=== PATIENT | female | born 1985 | race Caucasian/White ===

== ENCOUNTER → 2017-10-11 | Outpatient (CLI) | payer OTHER ==
[~2017-10-11] MED LIST: AMIT25; AMIT50; AMOX500 PO; Amoxicillin500 MG PO; BIRTH CONTROL PILL PO; BIRTH CONTROLE; Bentyl10 MG; CALCAVITD PO; CEPH500 PO; CIPR500 PO; CITA20 PO; CYCL10 PO; Citalopram HBr20 MG PO; Cyclobenzaprine5 MG PO; DIPH50 PO; DOXY100 PO; GABA100 PO; HYDACE5 PO; HYDACE5325 PO; HYDR1TAB94 PO; IBUHYD PO; IBUP400; IBUP600 PO; IBUP800 PO; LEVFLO500 PO; MEDR150I IM; META800 PO; METO10; MULVITMINE PO; NAPR500 PO; Norco 5-325 Ta1 EACH PO; ONDA4 PO; OXYACE5T PO; OXYC10TA19; PHENA200 PO; PROBIOTIC1 EAC1 PO; PROM25; PROM25 PO; Percocet 5-3251 EACH PO; RXCLIN PO; RXHYD5325 PO; RXHYDACE PO; RXONDA4ODT MM; RXOXYACE PO; SULTRIDS PO; Super B With V1 EACH PO; TRAM50 PO; TRAZ100 PO; VICODIN 5-3001 EACH; Verotin-Gr Cap1 EACH PO; Zofran Odt4 MG SL; Zofran8 MG PO
== END | disposition home or self-care (01) ==
LOC: LAB SHORT 15:09
DX: R10.9 Unspecified abdominal pain (principal)
CPT/HCPCS: 87077; 87086; 87186

== ENCOUNTER → 2018-02-24 | Outpatient (CLI) | payer OTHER ==
[~2018-02-24] MED LIST changes: -GABA100 PO
[2018-02-24 14:17] LABS: Candida species (DNA Probe) Negative (NEGATIVE); G. vaginalis (DNA Probe) Negative (NEGATIVE); T. vaginalis (DNA Probe) Negative (NEGATIVE)
== END ==
LOC: LAB SHORT 09:40
PROVIDERS: Obstetrics & Gynecology
DX: Z01.419 Encounter for gynecological examination (general) (routine) without abnormal findings (principal)
CPT/HCPCS: 87480; 87510; 87660

== ENCOUNTER → 2018-02-24 | Outpatient (CLI) | payer OTHER ==
[2018-02-24 10:14] LABS: Source, Urine Clean Catch
[2018-02-24 13:17] LABS: Bilirubin, Urine Neg (Neg); Blood, Urine 2+ (Neg); Glucose Qualitative, Urine Neg (Neg); Ketones, Urine Neg (Neg); Leukocyte Esterase, Urine Neg (Neg); Nitrite, Urine Neg (Neg); Protein, Urine Neg (Neg); Urobilinogen, Urine NORM (Normal)
[2018-02-24 13:28] LABS: Color, Urine Pale Yellow (P-Yellow)
[2018-02-24 13:29] LABS: Appearance, Urine Clear (Clear)
[2018-02-24 13:30] LABS: Bacteria Not Seen /hpf; Red Blood Cells, Urine Not Seen /hpf (0-2); Squamous Epithelial Cells Not Seen /hpf (Few); White Blood Cells, Urine Not Seen /hpf (0-5)
== END ==
LOC: LAB SHORT 10:12 → LAB 10:12
PROVIDERS: Obstetrics & Gynecology
DX: R30.0 Dysuria (principal)
CPT/HCPCS: 81001

== ENCOUNTER → 2018-12-09 | Outpatient (CLI) | payer OTHER ==
[~2018-12-09] MED LIST changes: +GABA100 PO
[2018-12-09 16:48] LABS: Source, Urine Clean Catch
[2018-12-09 18:15] LABS: Bilirubin, Urine Neg (Neg); Blood, Urine 2+ (Neg); Glucose Qualitative, Urine Neg (Neg); Ketones, Urine 3+ (Neg); Leukocyte Esterase, Urine 2+ (Neg); Nitrite, Urine Neg (Neg); Protein, Urine 1+ (Neg); Specific Gravity, Urine 1.025 (1.003-1.022); Urobilinogen, Urine NORM (Normal)
[2018-12-09 18:33] LABS: Appearance, Urine Hazy (Clear); Color, Urine Yellow (P-Yellow)
[2018-12-09 18:34] LABS: Bacteria Many /hpf; Mucus Light (0-Heavy); Red Blood Cells, Urine 0-2 /hpf (0-2); Squamous Epithelial Cells Few /hpf (Few)
== END | disposition home or self-care (01) ==
LOC: LAB SHORT 15:39 → LAB 15:39
PROVIDERS: Obstetrics & Gynecology
DX: O99.89 Other specified diseases and conditions complicating pregnancy, childbirth and the puerperium (principal); R31.9 Hematuria, unspecified
CPT/HCPCS: 81001; 87086

== ENCOUNTER → 2019-04-27 | Outpatient (CLI) | payer OTHER ==
[~2019-04-27] MED LIST changes: +PRENATAL TABLE1 EAC2 PO
[2019-04-28 11:44] LABS: Candida species (DNA Probe) Positive (NEGATIVE); G. vaginalis (DNA Probe) Negative (NEGATIVE); T. vaginalis (DNA Probe) Negative (NEGATIVE)
== END | disposition home or self-care (01) ==
LOC: LAB SHORT 16:09 → LAB 16:09
PROVIDERS: Obstetrics & Gynecology
DX: N76.0 Acute vaginitis (principal)
CPT/HCPCS: 87480; 87510; 87660

== ENCOUNTER → 2019-05-25 | Outpatient (CLI) | payer OTHER | END | disposition home or self-care (01) | LOC: LAB SHORT 14:57 → LAB 14:57 | DX: Z34.80 Encounter for supervision of other normal pregnancy, unspecified trimester (principal) | CPT/HCPCS: 87081; 87653 ==

== ENCOUNTER 2019-06-23 16:37 | Inpatient (IN) | payer OTHER ==
[~2019-06-23] VITALS: Ht 162.6 cm; Wt 81.8 kg
[~2019-06-23 16:37] MED LIST changes: -PRENATAL TABLE1 EAC2 PO
[2019-06-23] MEDS ORDERED: PRENATAL TABLE1 EAC2 PO (18:31)
[2019-06-23 19:02] LABS: BASOPHILS ABSOLUTE AUTO 0.05 K/mm3 (0.00-0.23); BASOPHILS PERCENT AUTO 0 % (0-2); EOSINOPHILS ABSOLUTE AUTO 0.05 K/mm3 (0.00-0.68); EOSINOPHILS PERCENT AUTO 0 % (0-6); Hematocrit 39.7 % (33.0-51.0); Hemoglobin 13.4 g/dL (11.5-16.0); IMMATURE GRAN ABSOLUTE AUTO 0.15 K/mm3 (0.00-0.10); IMMATURE GRAN PERCENT AUTO 1 % (0-1); LYMPHOCYTES ABSOLUTE AUTO 1.81 K/mm3 (0.84-5.20); LYMPHOCYTES PERCENT AUTO 11 % (21-46); MONOCYTES ABSOLUTE AUTO 0.64 K/mm3 (0.16-1.47); MONOCYTES PERCENT AUTO 4 % (4-13); Mean Corpuscular HGB 29.8 pg (26.0-34.0); Mean Corpuscular HGB Conc 33.8 g/dL (31.5-36.5); Mean Corpuscular Volume 88 fL (80-100); NEUTROPHILS ABSOLUTE AUTO 13.83 K/mm3 (1.96-9.15); NEUTROPHILS PERCENT AUTO 84 % (41-73); Platelet Count 282 K/mm3 (150-400); RDW Coefficient Variation 12.7 % (11.7-14.2); RDW Standard Deviation 41.1 fL (35.1-46.3); Red Blood Cell Count 4.49 M/mm3 (3.80-5.20); White Blood Cell Count 16.53 K/mm3 (4.00-11.30)
[2019-06-24 05:07] LABS: Hematocrit 35.3 % (33.0-51.0); Hemoglobin 11.9 g/dL (11.5-16.0); Mean Corpuscular HGB 29.6 pg (26.0-34.0); Mean Corpuscular HGB Conc 33.7 g/dL (31.5-36.5); Mean Corpuscular Volume 88 fL (80-100); Mean Platelet Volume 9.1 fL (9.1-12.4); Platelet Count 254 K/mm3 (150-400); RDW Coefficient Variation 12.6 % (11.7-14.2); Red Blood Cell Count 4.02 M/mm3 (3.80-5.20); White Blood Cell Count 19.75 K/mm3 (4.00-11.30)
[2019-06-24] MEDS ORDERED: IBUP800 PO (22:51)
== END 2019-06-24 23:00 | disposition home or self-care (01) | DRG 807 ==
LOC: OBS 16:37 → BC 16:37 → OBS 18:27 → BC 18:29
PROVIDERS: ADMIT Obstetrics & Gynecology
PROC: 10E0XZZ Delivery of Products of Conception, External Approach (ICD-10-PCS; principal; 2019-06-23)
PROC: 10907ZC Drainage of Amniotic Fluid, Therapeutic from Products of Conception, Via Natural or Artificial Opening (ICD-10-PCS; 2019-06-23)
DX: O32.6XX0 Maternal care for compound presentation, not applicable or unspecified (principal); Z37.0 Single live birth; Z3A.39 39 weeks gestation of pregnancy
CPT/HCPCS: 36415; 85025; 85027; J1885; J2210; J2590; J3010; J7120

== ENCOUNTER → 2020-02-02 | Outpatient (CLI) | payer OTHER ==
[~2020-02-02] MED LIST changes: +PRENATAL TABLE1 EAC2 PO
[2020-02-03 11:10] LABS: Candida species (DNA Probe) Negative (NEGATIVE); G. vaginalis (DNA Probe) Negative (NEGATIVE); T. vaginalis (DNA Probe) Negative (NEGATIVE)
== END | disposition home or self-care (01) ==
LOC: LAB 16:00 → LAB SHORT 16:00
PROVIDERS: Obstetrics & Gynecology
DX: N76.0 Acute vaginitis (principal)
CPT/HCPCS: 87480; 87510; 87660

== ENCOUNTER 2020-03-02 20:27 | Emergency (ER) | payer OTHER ==
[~2020-03-02] VITALS: Ht 162.6 cm; Wt 70.3 kg
[2020-03-02 21:51] LABS: Source, Urine Clean Catch
[2020-03-02 21:55] LABS: Bilirubin, Urine Neg (Neg); Blood, Urine 4+ (Neg); Glucose Qualitative, Urine Neg (Neg); Ketones, Urine Neg (Neg); Leukocyte Esterase, Urine 1+ (Neg); Nitrite, Urine Neg (Neg); Protein, Urine 1+ (Neg); Urobilinogen, Urine NORM (Normal)
[2020-03-02 21:56] LABS: Appearance, Urine Clear (Clear); Color, Urine Yellow (P-Yellow)
[2020-03-02 22:02] LABS: Amorphous Light (0-Heavy); Bacteria Mod /hpf; Hyaline Casts 0-2 /lpf (0-2); Mucus Heavy (0-Heavy); Squamous Epithelial Cells Mod /hpf (Few)
[2020-03-02] MEDS ORDERED: CEPH500 PO (22:31)
[2020-03-02] MEDS ORDERED: Pyridium200 MG PO (22:31)
== END 2020-03-02 22:50 | disposition home or self-care (01) ==
LOC: ER 20:27
PROVIDERS: Physician Assistant
DX: N12 Tubulo-interstitial nephritis, not specified as acute or chronic (principal); Z88.2 Allergy status to sulfonamides; Z79.899 Other long term (current) drug therapy; Z87.891 Personal history of nicotine dependence
CPT/HCPCS: 81001; 87086; 99284; A9270; A9270-GY

== ENCOUNTER 2021-01-05 11:21 | Day surgery (SDC) | payer OTHER ==
[~2021-01-05] VITALS: Ht 162.6 cm; Wt 65.3 kg
[~2021-01-05 11:21] MED LIST changes: +BENADRYL25 MG PO; +MAGNESIUM OXID500 MG PO; +OMEP20ER PO; +Pyridium200 MG PO
[2021-01-05] MEDS ORDERED: AMIT25 PO (11:38)
[2021-01-05] MEDS ORDERED: ZOLP6.25 PO (11:39)
--- NOTE | 2021-01-05 11:42 | NUR ---
01/05/21 Sina2 Yuliana Waters CALL LIGHT WITHIN REACH
== END 2021-01-05 13:10 | disposition home or self-care (01) ==
LOC: ORSCSDS 11:21
PROVIDERS: Internal Medicine Gastroenterology
PROC: 0DB98ZX Excision of Duodenum, Via Natural or Artificial Opening Endoscopic, Diagnostic (ICD-10-PCS; principal; 2021-01-05 12:30)
PROC: 0DB78ZX Excision of Stomach, Pylorus, Via Natural or Artificial Opening Endoscopic, Diagnostic (ICD-10-PCS; principal; 2021-01-05 12:30)
PROC: 0DBE8ZX Excision of Large Intestine, Via Natural or Artificial Opening Endoscopic, Diagnostic (ICD-10-PCS; principal; 2021-01-05 12:30)
DX: K31.84 Gastroparesis (principal); R19.7 Diarrhea, unspecified; K64.8 Other hemorrhoids; R10.30 Lower abdominal pain, unspecified; R14.1 Gas pain; R63.0 Anorexia; Z87.891 Personal history of nicotine dependence; Z79.899 Other long term (current) drug therapy
CPT/HCPCS: 88305; J2250; J2704; J7120

== ENCOUNTER → 2021-01-13 | Outpatient (CLI) | payer OTHER ==
[~2021-01-13] MED LIST changes: +AMIT25 PO; +ZOLP6.25 PO
== END ==
LOC: LAB EV 16:37 → LAB SHORT 16:37
DX: J02.9 Acute pharyngitis, unspecified (principal)
CPT/HCPCS: 87081

== ENCOUNTER → 2021-07-26 | Outpatient (CLI) | payer OTHER ==
[2021-07-28 14:10] LABS: HPV 16 Negative (Negative); HPV 18 Negative (Negative); HPV OTHER HR TYPES Negative (Negative)
== END ==
LOC: LAB SHORT 16:12 → LAB 16:12
PROVIDERS: Obstetrics & Gynecology
DX: Z01.419 Encounter for gynecological examination (general) (routine) without abnormal findings (principal)
CPT/HCPCS: 87624; G0123

== ENCOUNTER → 2022-02-10 | Outpatient (CLI) | payer OTHER ==
[2022-02-10 15:19] LABS: BASOPHILS ABSOLUTE AUTO 0.08 K/mm3 (0.00-0.23); BASOPHILS PERCENT AUTO 1 % (0-2); EOSINOPHILS ABSOLUTE AUTO 0.06 K/mm3 (0.00-0.68); EOSINOPHILS PERCENT AUTO 0 % (0-6); Hematocrit 42.4 % (33.0-51.0); Hemoglobin 14.8 g/dL (11.5-16.0); IMMATURE GRAN ABSOLUTE AUTO 0.04 K/mm3 (0.00-0.10); IMMATURE GRAN PERCENT AUTO 0 % (0-1); LYMPHOCYTES ABSOLUTE AUTO 1.77 K/mm3 (0.84-5.20); LYMPHOCYTES PERCENT AUTO 11 % (21-46); MONOCYTES ABSOLUTE AUTO 0.73 K/mm3 (0.16-1.47); MONOCYTES PERCENT AUTO 5 % (4-13); Mean Corpuscular HGB 29.3 pg (26.0-34.0); Mean Corpuscular HGB Conc 34.9 g/dL (31.5-36.5); Mean Corpuscular Volume 84 fL (80-100); Mean Platelet Volume 8.9 fL (9.1-12.4); NEUTROPHILS ABSOLUTE AUTO 13.28 K/mm3 (1.96-9.15); NEUTROPHILS PERCENT AUTO 83 % (41-73); Platelet Count 413 K/mm3 (150-400); RDW Coefficient Variation 12.3 % (11.7-14.2); RDW Standard Deviation 37.4 fL (35.1-46.3); Red Blood Cell Count 5.05 M/mm3 (3.80-5.20); White Blood Cell Count 15.96 K/mm3 (4.00-11.30)
== END ==
LOC: LAB SHORT 15:13 → LAB 15:13
PROVIDERS: Physician Assistant
DX: J03.90 Acute tonsillitis, unspecified (principal)
CPT/HCPCS: 85025

== ENCOUNTER → 2025-01-27 | Outpatient (CLI) | payer OTHER | LOC: LAB SHORT 11:29 → LAB 11:29 | DX: O09.93 Supervision of high risk pregnancy, unspecified, third trimester (principal) | CPT/HCPCS: 87081; 87150 ==

== ENCOUNTER 2025-02-07 05:14 | Inpatient (IN) | payer OTHER ==
[~2025-02-07] VITALS: Ht 162.6 cm; Wt 81.1 kg
[2025-02-07] VITALS (9 sets, daily range): BP systolic 92–143; BP diastolic 56–80
[2025-02-07] MEDS ORDERED: Carboprost Tromethamine 250 MCG/ML 1ML Amp IM PRN (05:25)
[2025-02-07] MEDS ORDERED: Misoprostol 200 MCG Tab PR PRN (05:25)
[2025-02-07] MEDS ORDERED: Tranexamic Acid 100 ML IV PRN (05:25)
[2025-02-07] MEDS ORDERED: Methylergonovine Maleate 0.2MG / ML 1ML Amp IM PRN (05:25)
[2025-02-07] MEDS ORDERED: Lactated Ringer's 1,000 ML IV PRN (05:25)
[2025-02-07] MEDS ORDERED: Misoprostol 200 MCG Tab BC PRN (05:25)
[2025-02-07] MEDS ORDERED: OXYTOCIN/RINGER'S LACTATE 500 ML IV PRN (05:25)
[2025-02-07] MEDS ORDERED: Oxytocin 10 Unit / ML Vial IM PRN (05:25)
[2025-02-07] MEDS ORDERED: Ondansetron HCl 2 MG / ML 2ML Vial IV PRN (05:25)
[2025-02-07] MEDS ORDERED: Acetaminophen 500 MG Tab PO PRN (05:25)
[2025-02-07] MEDS ORDERED: Calcium Carbonate 500 MG Tab Chew PO PRN (05:30)
[2025-02-07] MEDS ORDERED: Benzocaine Topical Anesthetic Spray 60GM TOP PRN (05:40)
[2025-02-07] MEDS ORDERED: Polyethylene Glycol 3350 17 gm PO PRN (05:40)
[2025-02-07] MEDS ORDERED: Rho(D) Immune Globulin 300 MCG / SYR IM ONE (05:40)
[2025-02-07] MEDS ORDERED: Acetaminophen 325 MG TABLET PO PRN (05:45)
[2025-02-07] MEDS ORDERED: Ibuprofen 400 MG Tab PO PRN (05:45)
[2025-02-07] MEDS ORDERED: Lanolin Cream TOP PRN (05:45)
[2025-02-07] MEDS ORDERED: Measles/Mumps/Rubella Vaccine 0.5 ML Vial SC ONE (05:45)
[2025-02-07] MEDS ORDERED: Ketorolac Tromethamine 30mg Vial IV PRN (05:45)
[2025-02-07] MEDS ORDERED: Witch Hazel/Glycerin PADS TOP PRN (05:45)
[2025-02-07 05:55] LABS: BASOPHILS ABSOLUTE AUTO 0.04 K/mm3 (0.00-0.23); BASOPHILS PERCENT AUTO 0 % (0-2); EOSINOPHILS ABSOLUTE AUTO 0.15 K/mm3 (0.00-0.68); EOSINOPHILS PERCENT AUTO 1 % (0-6); Hematocrit 36.7 % (33.0-51.0); Hemoglobin 13.1 g/dL (11.5-16.0); IMMATURE GRAN PERCENT AUTO 1 % (0-1); LYMPHOCYTES ABSOLUTE AUTO 2.04 K/mm3 (0.84-5.20); LYMPHOCYTES PERCENT AUTO 14 % (21-46); MONOCYTES ABSOLUTE AUTO 0.68 K/mm3 (0.16-1.47); MONOCYTES PERCENT AUTO 5 % (4-13); Mean Corpuscular HGB 30.2 pg (26.0-34.0); Mean Corpuscular HGB Conc 35.7 g/dL (31.5-36.5); Mean Corpuscular Volume 85 fL (80-100); NEUTROPHILS ABSOLUTE AUTO 11.17 K/mm3 (1.96-9.15); NEUTROPHILS PERCENT AUTO 79 % (41-73); Platelet Count 264 K/mm3 (150-400); RDW Coefficient Variation 12.9 % (11.7-14.2); RDW Standard Deviation 39.7 fL (35.1-46.3); Red Blood Cell Count 4.34 M/mm3 (3.80-5.20); White Blood Cell Count 14.18 K/mm3 (4.00-11.30)
--- NOTE | 2025-02-07 07:21 | NUR ---
PT ARRIVED TO [facility] AROUND 0455, STATES "NEEDS TO POOP" AND CANNOT WALK OR USE WHEELCHAIR, PT STATES HER "BABY IS COMING NOW". THIS RN CALLED DR. GARCIA TO UPDATE, DR. GARCIA REFERRED TO DR. BAKER WHO IS CLINICAL RESEARCH NURSE. DR. BAKER CALLED AT 0458, NO ANSWER, AROUND 0500 DR. BAKER RETURNED CALL AND THIS RN UPDATED THAT PT WALKED IN AND IS READY TO DELIVER NB. PROVIDER TO BE ON WAY, ARRIVED IN HOUSE AROUND [id number].
[2025-02-07] MEDS ORDERED: Prenatal Vit/FE Fumarate/FA 1 Tab PO SCH (09:00)
[2025-02-07] MEDS ORDERED: Oxytocin 10 Unit / ML Vial IV ONE (15:04)
[2025-02-08 01:35] VITALS: BP 97/52
[2025-02-08 06:13] VITALS: BP 103/66
[2025-02-08 07:52] LABS: BASOPHILS ABSOLUTE AUTO 0.06 K/mm3 (0.00-0.23); BASOPHILS PERCENT AUTO 0 % (0-2); EOSINOPHILS ABSOLUTE AUTO 0.28 K/mm3 (0.00-0.68); EOSINOPHILS PERCENT AUTO 2 % (0-6); IMMATURE GRAN ABSOLUTE AUTO 0.07 K/mm3 (0.00-0.10); IMMATURE GRAN PERCENT AUTO 1 % (0-1); LYMPHOCYTES ABSOLUTE AUTO 1.81 K/mm3 (0.84-5.20); LYMPHOCYTES PERCENT AUTO 13 % (21-46); MONOCYTES ABSOLUTE AUTO 0.69 K/mm3 (0.16-1.47); MONOCYTES PERCENT AUTO 5 % (4-13); Mean Corpuscular HGB Conc 34.4 g/dL (31.5-36.5); Mean Corpuscular Volume 87 fL (80-100); Mean Platelet Volume 9.1 fL (9.1-12.4); NEUTROPHILS ABSOLUTE AUTO 10.98 K/mm3 (1.96-9.15); NEUTROPHILS PERCENT AUTO 79 % (41-73); Platelet Count 248 K/mm3 (150-400); RDW Coefficient Variation 13.1 % (11.7-14.2); RDW Standard Deviation 41.5 fL (35.1-46.3); Red Blood Cell Count 3.67 M/mm3 (3.80-5.20); White Blood Cell Count 13.89 K/mm3 (4.00-11.30)
[2025-02-08 07:55] VITALS: BP 103/62
[2025-02-08 09:53] VITALS: BP 107/68
== END 2025-02-08 10:30 | disposition home or self-care (01) | DRG 807 ==
LOC: OBS 05:14 → BC 05:19 → OBS 05:25 → BC 05:25
PROVIDERS: Family Medicine; ADMIT Obstetrics & Gynecology
PROC: 10E0XZZ Delivery of Products of Conception, External Approach (ICD-10-PCS; principal; 2025-02-07)
DX: O62.3 Precipitate labor (principal); Z37.0 Single live birth; O99.824 Streptococcus B carrier state complicating childbirth; O99.344 Other mental disorders complicating childbirth; F41.8 Other specified anxiety disorders; Z87.891 Personal history of nicotine dependence; Z88.2 Allergy status to sulfonamides; O69.81X0 Labor and delivery complicated by cord around neck, without compression, not applicable or unspecified; Z3A.37 37 weeks gestation of pregnancy
CPT/HCPCS: 36415; 85025; 86850; 86900; 86901; 86923; A9270; J1885; J2590